=== PATIENT | male | born 1980 | race Caucasian/White ===

== ENCOUNTER 2023-07-11 12:56 | Day surgery (SDC) | payer BC ==
[2023-07-11] MEDS ORDERED: Decadron 4 MG INJ IV ONE (12:57)
[2023-07-11] MEDS ORDERED: XYLOCAINE-MPF 1% 5ML SDV IJ ONE (12:57)
[2023-07-11] MEDS ORDERED: Sodium Chloride 0.9(Preservative Free) 10 ML IJ ONE (12:57)
[2023-07-11] MEDS ORDERED: DIPRIVAN 200 MG/20 ML IV ONE ×2 (14:42→14:46)
[2023-07-11] MEDS ORDERED: BREVIBLOC 100 MG/10 ML IV ONE (14:52)
[2023-07-11] MEDS ORDERED: Lactated Ringers 1,000 ML IV ONE (15:28)
--- NOTE | 2023-07-11 16:22 | XRAY ---
Indication: Left L4-S1 transforaminal SEA. Intraoperative fluoroscopy provided for 24 seconds. 4 digital spot images submitted for interpretation demonstrates posterior needle tips projecting over the expected left L4 and L5 nerve roots. Small amount of contrast injected for needle tip placement. Correlate with intraoperative findings/report.
--- NOTE | 2023-07-11 16:24 | XRAY ---
Indication: Left piriformis injection. Intraoperative fluoroscopy provided for 11 seconds. Single digital spot image submitted for interpretation demonstrates posterior needle tip projecting over the expected left piriformis. Small amount of contrast injected for needle tip placement. Correlate with intraoperative findings/report.
--- NOTE | 2023-07-12 10:59 | XRAY ---
11 seconds of fluoroscopy was used in surgery for a left piriformis injection.
--- NOTE | 2023-07-12 10:59 | XRAY ---
24 seconds of fluoroscopy was used in surgery for a left L4-S1 transforaminal SEA.
== END 2023-07-11 15:17 | disposition home or self-care (01) ==
LOC: SDC-PAIN 12:56
PROVIDERS: ATTEND Psychiatry & Neurology Pain Medicine
DX: M54.16 Radiculopathy, lumbar region (principal); M79.18 Myalgia, other site
CPT/HCPCS: 20552; 64483; 64484; 72100; 72170; 77002; 77003; 93005; J1100; J2704; Q9966